=== PATIENT | male | born 1950 | race Hispanic/Latino ===

== ENCOUNTER 2021-01-18 23:58 | Emergency (ER) | payer MEDICARE ==
[~2021-01-18] VITALS: Ht 165.1 cm; Wt 70.8 kg
== END 2021-01-19 00:25 | disposition home or self-care (01) ==
LOC: ER 01-19 00:15
DX: R03.0 Elevated blood-pressure reading, without diagnosis of hypertension (principal); Z86.16 Personal history of COVID-19
CPT/HCPCS: 99282